=== PATIENT | female | born 1960 | race Caucasian/White ===

== ENCOUNTER 2021-09-30 12:22 | Emergency (ER) | payer OTHER ==
[2021-09-30] MEDS ORDERED: Fluorescein Opthalmic Strip ONE (12:33)
[2021-09-30] MEDS ORDERED: Proparacaine 0.5% Opth 15 ML BOT ONE (12:33)
[2021-09-30] MEDS ORDERED: Boostrix 0.5 ML (Tdap) VIAL ONE (12:59)
[2021-09-30] MEDS ORDERED: Bacitracin 1 PK ONE (16:52)
== END 2021-09-30 17:16 | disposition home or self-care (01) ==
LOC: ERS 12:22
DX: S01.111A Laceration without foreign body of right eyelid and periocular area, initial encounter (principal); W26.8XXA Contact with other sharp object(s), not elsewhere classified, initial encounter
CPT/HCPCS: 90471; 90715; 99282